=== PATIENT | female | born 1970 | race Caucasian/White ===

== ENCOUNTER 2018-05-07 11:52 | Inpatient (IN) | payer OTHER, MEDICAID ==
[~2018-05-07] VITALS: Ht 162.6 cm; Wt 70.8 kg
--- NOTE | ~2018-05-07 | PROC ---
[address] [address] PROCEDURE REPORT Name: GLADYS REYEZ Room: [address] IN .R.#: [id number] Admission: 05/07/18 Attend Phys: Alberto Contreras MD Discharge: 05/09/18 Date of : 70 Report #: [id number] THIS REPORT FOR: //name// For GI report, please see the Provation report in [employer] 7 content. By: [id number] Records Staff [place] /NARDA
[2018-05-07 12:04] VITALS: BP 120/71
[2018-05-07] MEDS ORDERED: BIOIDENTICAL HORMONE PO (12:06)
[2018-05-07 12:10] LABS: URINE BILIRUBIN NEGATIVE (Negative); URINE BLOOD 3+ (Negative); URINE CLARITY CLEAR; URINE COLOR YELLOW; URINE GLUCOSE-RANDOM NEGATIVE (Negative); URINE KETONES TRACE (Negative); URINE LEUKOCYTES-REFLEX NEGATIVE (Negative); URINE NITRITE-REFLEX NEGATIVE (Negative); URINE PROTEIN NEGATIVE (Negative); URINE UROBILINOGEN 0.2 E.U./dl (0.2-1.0)
[2018-05-07 12:24] LABS: SQUAMOUS >10 Many /LPF (0-3)
[2018-05-07 12:25] LABS: URINE WBC-REFLEX 6-15 Few /HPF (0-5); WBC CLUMPS Few (None Seen)
[2018-05-07 12:26] LABS: CASTS None Seen /LPF (None Seen); MUCUS 0-3 Light strn/LPF (None Seen); URINE RBC 3-10 Few /HPF (0-2)
[2018-05-07 12:27] LABS: CRYSTALS None Seen /LPF (None Seen)
[2018-05-07 12:32] LABS: HEMOGLOBIN 13.6 gm/dL (12.0-15.0); MCH 31.6 pg (26.0-34.0); MCHC 34.1 g/dL (28.0-37.0); MCV 92.7 fL (80.0-100.0); MPV 8.4 fl. (7.2-11.1); NUCLEATED RBCS 0 /100WBC; PLATELET COUNT* 327 thou/uL (150-400); RBC 4.31 mil/uL (4.20-5.00); RDW-CV 12.7 % (10.5-14.5); WBC 21.8 thou/uL (4.0-11.0)
[2018-05-07 12:38] LABS: CALCIUM 8.9 mg/dL (8.5-10.1); CREATININE 1.1 mg/dL (0.6-1.3); POTASSIUM 4.2 mmol/L (3.5-5.1)
[2018-05-07 12:42] LABS: ALBUMIN 4.1 g/dL (3.4-5.0); MAGNESIUM 1.8 mg/dL (1.8-2.4); PHOSPHORUS* 4.8 mg/dL (2.5-4.9); TOTAL BILIRUBIN 1.6 mg/dL (<0.1-1.0); URIC ACID* 3.4 mg/dL (2.6-7.2)
[2018-05-07 13:05] LABS: ABSOLUTE NEUTROPHILS 17.9 thou/uL (1.6-8.1); PLATELET ESTIMATE ADEQUATE
[2018-05-07 18:16] VITALS: BP 105/63
[2018-05-07 18:32] VITALS: BP 116/64
[2018-05-08] VITALS: BP 101/53
[2018-05-08 04:24] LABS: HEMATOCRIT 33.3 % (37.0-47.0); MCH 31.2 pg (26.0-34.0); MCV 94.7 fL (80.0-100.0); MPV 8.9 fl. (7.2-11.1); NUCLEATED RBCS 0 /100WBC; RBC 3.52 mil/uL (4.20-5.00); RDW-CV 12.8 % (10.5-14.5); WBC 14.9 thou/uL (4.0-11.0)
[2018-05-08 04:29] LABS: CALCIUM 7.2 mg/dL (8.5-10.1); CREATININE 0.9 mg/dL (0.6-1.3); PLATELET COUNT* 226 thou/uL (150-400); POTASSIUM 3.8 mmol/L (3.5-5.1)
[2018-05-08 05:31] LABS: ABSOLUTE EOSINOPHILS 0.3 thou/uL (0.0-0.7); ABSOLUTE LYMPHOCYTES 2.7 thou/uL (0.8-5.3); ABSOLUTE MONOCYTES 0.3 thou/uL (0.0-1.2); ABSOLUTE NEUTROPHILS 11.6 thou/uL (1.6-8.1); ANISOCYTOSIS 1+; PLATELET ESTIMATE ADEQUATE; POIKILOCYTOSIS 1+
[2018-05-08 08:00] VITALS: BP 97/53
[2018-05-08 10:40] VITALS: BP 110/70; BP 114/65; BP 120/66
[2018-05-08 16:00] VITALS: BP 136/83
[2018-05-09] VITALS: BP 129/76
[2018-05-09 07:45] VITALS: BP 128/74
[2018-05-09 07:57] VITALS: BP 129/76
[2018-05-09 10:50] VITALS: BP 105/66
[2018-05-09] MEDS ORDERED: BENTYL 10 MG CA10 M1 PO (12:39)
[2018-05-09] MEDS ORDERED: CIPRO500 M1 PO (12:39)
[2018-05-09] MEDS ORDERED: FLAGYL500 MG PO (12:41)
[2018-05-09] MEDS ORDERED: NORCO 5-325 TA1 EACH PO (12:41)
[2018-05-09 12:42] VITALS: BP 105/66
--- NOTE | 2018-05-13 11:10 | PATH ---
[address] [address] PATHOLOGY RPT PROCEDURE Name: GLADYS REYEZ Room: [address] IN .R.#: [id number] Admission: 05/07/18 Date of : 70 Discharge: 05/09/18 Report #: [id number] Path Case #: [id number] [facility] Accession Number: [id number] . 01 Material submitted: . PART A: CECAL ULCERATIONS PART B: SPLENIC FLEXURE PART C: SIGMOID COLON . 01 Clinical history: . None provided . 02 Diagnosis: A. Cecal ulcerations: - Active colitis with mucosal necrosis/ulceration and atrophy typical of ischemic colitis, negative for granulomas, viral inclusions and dysplasia. See comment. . B. Splenic flexure: - Active colitis with prominent mucosal necrosis compatible with ischemic colitis, negative for granulomas, viral inclusions and dysplasia. See comment. . C. Sigmoid colon: - Active colitis with mucosal necrosis, compatible with ischemic colitis, negative for granulomas, viral inclusions and dysplasia. See comment. (AVIS:asif; 05/12/2018) QMS/05/12/2018 . 02 Comment: The cecal ulcerations biopsy (A) shows benign colonic mucosa with mucosal necrosis and atrophy of adjacent crypts and relative preservation of the deepest aspects in association with active inflammation, condensation of the lamina propria suggesting fibrosis and scattered fresh hemorrhage. The splenic flexure and sigmoid colon biopsies (B and C) show similar features but with less transitional histologic findings between that of minimally inflamed benign colonic mucosa and frankly necrotic mucosa. (AVIS:asif; 05/12/2018) . 02 Electronically signed: . Murphy Phillips MD, Pathologist NPI- [id number] . 01 Gross description: . A. Received in formalin labeled "Gladys Reyez, cecal ulcerations," are 5 segments of tillman soft tissue measuring 1.1 x 0.7 x 0.2 cm in aggregate dimensions and ranging from 0.2 to 0.4 cm in maximum dimension. The specimen is submitted entirely [place] [address] PATHOLOGY RPT PROCEDURE Name: GLADYS REYEZ Room: [address] IN .R.#: [id number] Admission: 05/07/18 Date of : 70 Discharge: 05/09/18 Report #: [id number] Path Case #: [id number] . B. Received in formalin labeled "Gladys Reyez, splenic flexure," are 3 segments of tillman soft tissue measuring 0.6 x 0.4 x 0.1 cm in aggregate dimensions and ranging from 0.2 to 0.4 cm in maximum dimension. The specimen is submitted entirely in cassette B1. . C. Received in formalin labeled "Gladys Reyez, sigmoid colon BX," are 3 segments of tillman soft tissue measuring 0.9 x 0.6 x 0.2 cm in aggregate dimensions and ranging from 0.2 to 0.3 cm in maximum dimension. The specimen is submitted entirely in cassette C1. (TSD; 05/09/2018) TOB/TOB . 02 Pathologist provided ICD-10: K55.9 . 02 CPT . 283571, 453228, 420860 Specimen Comment: A courtesy copy of this report has been sent to Specimen Comment: [phone], , . Specimen Comment: Report sent to ,DR REYNOLDS / DR RAYMUNDO Performed at: 01 [facility] [address] [place] [address] [address], [place], [place] [id number] MD Jeet Watts MD Phone: [phone] Performed at: 02 [facility] [address], [place], [place] [id number] MD Murphy Phillips MD Phone: [phone]
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
== END 2018-05-09 13:39 | disposition home or self-care (01) | DRG 371 ==
LOC: M.ERS 11:52 → M.3W 15:02 → M.TBA-ER 15:02 → M.3W 18:24
PROVIDERS: Nurse Practitioner Family; ADMIT Internal Medicine
PROC: 0DBH8ZX Excision of Cecum, Via Natural or Artificial Opening Endoscopic, Diagnostic (ICD-10-PCS; principal; 2018-05-09)
PROC: 0DBM8ZX Excision of Descending Colon, Via Natural or Artificial Opening Endoscopic, Diagnostic (ICD-10-PCS; principal; 2018-05-09)
PROC: 0DBL8ZX Excision of Transverse Colon, Via Natural or Artificial Opening Endoscopic, Diagnostic (ICD-10-PCS; principal; 2018-05-09)
PROC: 0DBN8ZX Excision of Sigmoid Colon, Via Natural or Artificial Opening Endoscopic, Diagnostic (ICD-10-PCS; principal; 2018-05-09)
DX: A04.9 Bacterial intestinal infection, unspecified (principal); K55.039 Acute (reversible) ischemia of large intestine, extent unspecified; R65.10 Systemic inflammatory response syndrome (SIRS) of non-infectious origin without acute organ dysfunction; N39.0 Urinary tract infection, site not specified; K92.1 Melena; E86.0 Dehydration; Z90.710 Acquired absence of both cervix and uterus; Z79.899 Other long term (current) drug therapy